=== PATIENT | female | born 1960 | race Caucasian/White ===

== ENCOUNTER 2020-08-18 06:23 | Outpatient (CLI) | payer SELFPAY ==
[~2020-08-18] VITALS: Ht 160 cm; Wt 78.7 kg
[2020-08-18] MEDS ORDERED: LOVA20TA2 PO (10:45)
== END 2020-08-18 11:06 | disposition home or self-care (01) ==
LOC: PREOP 06:23
PROVIDERS: ATTEND Surgery
DX: Z01.818 Encounter for other preprocedural examination (principal)

== ENCOUNTER 2020-08-21 08:17 | Day surgery (SDC) | payer BC ==
[2020-08-21] VITALS (11 sets, daily range): BP systolic 115–140; BP diastolic 50–89
[~2020-08-21] VITALS: Ht 160 cm; Wt 78.7 kg
[~2020-08-21 08:17] MED LIST: LOVA20TA2 PO
[2020-08-21] MEDS ORDERED: ceFAZolin 2 GM IV Premixed 50 ML IV ONE (08:30)
[2020-08-21] MEDS: LACTATED RINGERS 1,000 ML IV PRN ×2 (08:51→11:28)
[2020-08-21] MEDS ORDERED: LIDOCAINE/EPI 1%-1:100,000 (XYLOCAINE) 20ML ONE (08:52)
[2020-08-21] MEDS ORDERED: ceFAZolin 2 GM IV Premixed 50 ML ONE (08:56)
--- NOTE | 2020-08-21 09:05 | Progress Note-Pre Operative ---
Pre-Operative Progress Note H&P Reviewed The H&P was reviewed, patient examined and no changes noted. Date Seen by Provider: August 21, 2020 Time Seen by Provider: 09:00 Date H&P Reviewed: August 21, 2020 Time H&P Reviewed: 08:55 Pre-Operative Diagnosis: Biliary dyskinesia KAYY SULLIVAN APRN August 21, 2020 09:05
[2020-08-21] MEDS ORDERED: HYDR-3817 PO (09:08)
--- NOTE | 2020-08-21 09:08 | Discharge Inst-Surgical ---
D/C Lap Instructions-KIDO Reconcile Patient Problems Problems Reviewed?: Yes New, Converted, or Re-Newed RX: RX on Chart Follow Up Appt in 2 weeks Activity as tolerated No driving for 24 hours No driving while on pain medications Incentive Spirometry use every 2 hours while awake Regular Diet Symptoms to Report: Fever over 101 degree F, Nausea/Vomiting Infection Signs and Symptoms to report: Increased redness, Foul odor of wound, Increased drainage Bathing instructions: May shower Operative Area Clean/Dry; Keep incision clean/dry If any problems/questions: Contact your physician or go to Emergency Room KAYY SULLIVAN APRN August 21, 2020 09:08
[2020-08-21] MEDS ORDERED: HYDROcodone/APAP 5 MG/325 MG (LORTAB) TAB PO ONE (09:15)
[2020-08-21] MEDS ORDERED: ONDANSETRON 4 MG/2 ML (SDV) Z0FRAN IVP PRN (09:15)
[2020-08-21] MEDS ORDERED: morphine INJ 10 MG/ML 1ML (SYR OR VIAL) IVP PRN (09:15)
[2020-08-21] MEDS ORDERED: ACETAMINOPHEN 325 MG TABLET PO PRN (09:15)
[2020-08-21] MEDS ORDERED: proPOfol 200 MG/20 ML (DIPRIVAN) VIAL IV ONE (09:26)
[2020-08-21] MEDS ORDERED: ROCURONIUM 10 MG/ML 5 ML SYRINGE IV ONE (09:26)
[2020-08-21] MEDS ORDERED: LIDOCAINE PF 2% 5 ML (XYLOCAINE) VIAL ONE (09:26)
[2020-08-21] MEDS ORDERED: MIDAZOLAM 2 MG/2 ML (VERSED) VIAL ONE (09:26)
[2020-08-21] MEDS ORDERED: fentaNYL INJ 100 MCG/2 ML AMP ONE (09:26)
[2020-08-21] MEDS ORDERED: NEOSTIGMINE 3 MG/3 ML VIAL ONE (09:27)
[2020-08-21] MEDS ORDERED: SEVOFLURANE (ULTANE) 15 ML INHAL SOLN ONE ×2 (09:27→11:52)
[2020-08-21] MEDS ORDERED: GLYCOPYRROLATE 0.2 MG/ML (ROBINUL) 2 ML VIAL ONE (09:27)
--- NOTE | 2020-08-21 11:54 | Progress Note-Post Operative ---
Post-Operative Progess Note Surgeon (s)/Binder Cutter (s) Surgeon LISA CARLOS MD Binder Cutter: isabel deluca [employer] LOADER Pre-Operative Diagnosis Biliary dyskinesia Post-Operative Diagnosis same Procedure & Operative Findings Date of Procedure 08/21/20 Procedure Performed/Findings laparoscopic cholecystectomy Anesthesia Type get Estimated Blood Loss Estimated blood loss (mL): minimal Specimens/Packing Specimens Removed gallbladder LISA CARLOS MD August 21, 2020 11:54
[2020-08-21] MEDS ORDERED: KETOROLAC 30 MG/ML VIAL ONE (12:00)
[2020-08-21] MEDS ORDERED: fentaNYL INJ 100 MCG/2 ML AMP IVP ONE (12:15)
[2020-08-21] MEDS ORDERED: PROMETHAZINE INJ 25 MG/ML (PHENERGAN) AMP IVP ONE (12:15)
[2020-08-21] MEDS ORDERED: KETOROLAC 30 MG/ML VIAL IVP ONE (12:15)
[2020-08-21] MEDS ORDERED: MEPERIDINE (DEMEROL) INJ 50 MG/ML IVP ONE (12:15)
[2020-08-21] MEDS: ONDANSETRON 4 MG/2 ML (SDV) Z0FRAN IVP PRN ×2 (12:16→12:32)
--- NOTE | 2020-08-21 13:13 | Anesthesia-General Post-Op ---
General Patient Condition Mental Status/LOC: Same as Preop Cardiovascular: Satisfactory Nausea/Vomiting: Absent Respiratory: Satisfactory Pain: Controlled Complications: Absent Post Op Complications Complications None Follow Up Care/Instructions Patient Instructions None needed. Anesthesia/Patient Condition Patient Condition Patient is doing well, no complaints, stable vital signs, no apparent adverse anesthesia problems. No complications reported per nursing. AB SARMIENTO CRNA August 21, 2020 13:13
--- NOTE | 2020-08-21 13:14 | OPERATIVE REPORT ---
DATE OF SERVICE: 08/21/2020 PREOPERATIVE DIAGNOSIS: Symptomatic biliary dyskinesia. POSTOPERATIVE DIAGNOSIS: Chronic calculous cholecystitis. SURGEON: Lisa Carlos MD. ASSEMBLY CLEANER: Ángel Wild APRN. ANESTHESIA: General endotracheal. ESTIMATED BLOOD LOSS: Minimal. FINDINGS: Multiple small gallstones. DISPOSITION: The patient tolerated the procedure well. INDICATIONS: The patient is a 60-year-old female, who has had issues with right upper abdominal quadrant pain with associated nausea and vomiting usually after eating meals. She reports that this has been occurring for at least the past six months; however, has increased in severity and duration. She had an ultrasound performed, which was unremarkable; however, she then underwent a HIDA scan, which showed a low ejection fraction of 22% and consistent with a biliary dyskinesia. DESCRIPTION OF PROCEDURE: The patient was brought to the operating room, laid supine on the table. After adequate IV pain and sedative medications and general endotracheal intubation, the abdomen was prepped and draped in the standard surgical fashion. A 0.5% Marcaine with epinephrine was then used to anesthetize overlying skin left upper abdominal quadrant and a transverse skin incision made using a 15 blade. An 0 silk suture was applied to the medial aspect incision for retraction and a Veress needle inserted with a low opening pressure of 0 mmHg. The abdomen was then insufflated to 15 mmHg pressure. The Veress needle removed and a 5 mm XL trocar placed followed by a 5 mm 45-degree angle laparoscope visualizing the peritoneal cavity. A 4-quadrant abdominal exploration was performed. There did not appear to be any gallbladder wall thickening. The liver, small bowel, colon appeared normal. Under direct visualization, we then proceeded to place a supraumbilical 10 mm port after the skin and peritoneal lining were anesthetized using 0.5% Marcaine with epinephrine and a transverse skin incision made using 15 blade. In a similar manner, a right upper abdominal quadrant 5 mm port was placed. The patient was then placed in a reverse Trendelenburg position as well as plane right side up, left side down. The fundus of the gallbladder was then retracted anteriorly and superiorly. There were omental adhesions towards the fundus of the gallbladder, which were taken down using blunt dissection as well as electrocautery on the hook instrument. The hepatoduodenal ligament was then dissected using a blunt dissection as well as electrocautery on the hook instrument. The entire critical view of safety was identified including the triangle of Calot as well as the cystic duct and artery as the only two structures going into the gallbladder as well as the cystic plate behind the proximal gallbladder. A timeout was then taken and cystic duct and artery were then clipped proximally and distally and cut with EndoShears. The gallbladder was then dissected off the liver bed using electrocautery on hook instrument with visualization of good hemostasis as well as no leaking ducts of Luschka. The gallbladder was removed through the 10 mm port site using an EndoCatch bag. The 10 mm port site fascia and peritoneum were then closed under direct visualization using a Tre-Leonor device and 0 Vicryl suture. The abdomen was then desufflated and remaining ports removed. All skin incisions were closed using 4-0 Monocryl running subcuticular sutures. Wounds were then cleaned and covered with Dermabond. The patient tolerated the procedure well. We will start IV normal pain medication as well as a clear liquid diet. When she is tolerating clears, has good pain control with oral pain medications, ambulating well, we will discharge her home. We will also recommend no heavy lifting or exertion for the next two weeks. Job ID: [id number] DocumentID: [id number] Dictated Date: 08/21/2020 12:01:12 Manager Play Date: 08/21/2020 13:12:54 Dictated By: LISA CARLOS MD
[2020-08-21] MEDS ORDERED: HYDROcodone/APAP 5 MG/325 MG (LORTAB) TAB ONE (13:40)
== END 2020-08-21 14:25 | disposition home or self-care (01) ==
LOC: SDC 08:17
PROVIDERS: ATTEND Surgery
DX: K80.10 Calculus of gallbladder with chronic cholecystitis without obstruction (principal); E78.00 Pure hypercholesterolemia, unspecified; Z79.899 Other long term (current) drug therapy
CPT/HCPCS: 87081